=== PATIENT | male | born 1995 | race Caucasian/White ===

== ENCOUNTER 2018-09-01 10:15 | Emergency (ER) | payer OTHER ==
[~2018-09-01] VITALS: Ht 177.8 cm; Wt 66.1 kg
--- NOTE | 2018-09-01 10:55 | NUR ---
PT C/O OF FEELING LIKE HIS THROAT IS SWOLLEN, FEELS LIKE HE HAS A HARD TIME GETTING FOOD DOWN, LIKE IT GET STUCK IN HIS THROAT. Addendum: 09/01/18 at 1058 by [email or web address] X 1 WEEK
[2018-09-01 11:06] VITALS: BP 128/78
== END 2018-09-01 12:12 | disposition home or self-care (01) ==
LOC: ED 12:00
DX: R13.14 Dysphagia, pharyngoesophageal phase (principal); K21.9 Gastro-esophageal reflux disease without esophagitis
CPT/HCPCS: 74220; 99283